=== PATIENT | female | born 1995 | race Caucasian/White ===

== ENCOUNTER 2017-05-13 22:18 | Inpatient (IN) | payer OTHER ==
[2017-05-13 22:40] VITALS: BP 123/80; PULSE 93
[2017-05-13 22:54] VITALS: BP 123/80; PULSE 93; TEMP 98.5
[2017-05-13] MEDS ORDERED: ZANTAC 150MG T150 MG (23:07)
[2017-05-13] MEDS ORDERED: OSCAL 500 TAB500 MG PO (23:40)
[2017-05-13] MEDS ORDERED: PROZAC40 MG PO (23:40)
[2017-05-13] MEDS ORDERED: PRENATAL FORMU1 EAC3 (23:42)
[2017-05-14] VITALS (43 sets, daily range): BP systolic 106–152; BP diastolic 55–113; PULSE 65–125; TEMP 97.4–101.3
[2017-05-14 02:08] LABS: BASO # 0.1 (0.0-0.2); BASO % 0.3 % (0.0-2.0); EOS # 0.1 (0.0-0.7); EOS % 0.4 % (0-4.0); GRAN # 11.4 (1.4-6.5); GRAN % 75.2 % (42.2-75.2); HEMATOCRIT 35.9 % (37.0-47.0); HEMOGLOBIN 11.9 g/dl (12.5-16.0); LYMPH # 2.5 (1.2-3.4); LYMPH % 16.6 % (20.0-51.0); MEAN CELL VOLUME 87 fl (80.0-100.0); MEAN CORPUSCULAR HEMOGLOBIN 29 pg (27.0-31.0); MEAN CORPUSCULAR HGB CONC 33 g/dl (33.0-37.0); MEAN PLATELET VOLUME 9.9 fl (7.4-10.4); MONO % 6.8 % (1.7-9.3); PLATELET COUNT 264 K/mm3 (130-400); RED BLOOD COUNT 4.15 M/mm3 (4.10-5.30); REDCELL DISTRIBUTION WIDTH-CV 12.5 % (11.5-14.5)
[2017-05-15 03:20] VITALS: BP 129/82; PULSE 66
[2017-05-15 07:19] LABS: BASO % 0.3 % (0.0-2.0); EOS # 0.1 (0.0-0.7); EOS % 0.9 % (0-4.0); GRAN # 10.5 (1.4-6.5); GRAN % 71.3 % (42.2-75.2); LYMPH # 2.6 (1.2-3.4); LYMPH % 17.5 % (20.0-51.0); MEAN CELL VOLUME 89 fl (80.0-100.0); MEAN CORPUSCULAR HGB CONC 33 g/dl (33.0-37.0); MEAN PLATELET VOLUME 10.3 fl (7.4-10.4); MONO # 1.4 (0.1-0.6); MONO % 9.3 % (1.7-9.3); PLATELET COUNT 235 K/mm3 (130-400); RED BLOOD COUNT 3.44 M/mm3 (4.10-5.30); REDCELL DISTRIBUTION WIDTH-CV 12.9 % (11.5-14.5)
[2017-05-15 07:26] LABS: HEMATOCRIT 30.5 % (37.0-47.0); MEAN CORPUSCULAR HEMOGLOBIN 29 pg (27.0-31.0)
[2017-05-15 07:43] VITALS: BP 119/67; PULSE 59; TEMP 97.8
[2017-05-15 16:31] VITALS: BP 105/62; PULSE 70; TEMP 97.6
[2017-05-15 20:55] VITALS: BP 111/68; PULSE 81; TEMP 97.4
[2017-05-16 07:15] VITALS: BP 121/69; PULSE 63; TEMP 98.1
[2017-05-16] MEDS ORDERED: IBU600 MG PO (09:04)
[2017-05-16] MEDS ORDERED: PERCOCET 325 MG1 TA2 PO (09:05)
== END 2017-05-16 11:45 | disposition home or self-care (01) | DRG 775 ==
LOC: LDRO 22:18 → OB 05-14 01:24 → LDR 05-14 01:24 → OB 05-14 14:52
PROVIDERS: Obstetrics & Gynecology
PROC: 10E0XZZ Delivery of Products of Conception, External Approach (ICD-10-PCS; principal; 2017-05-14)
PROC: 0HQ9XZZ Repair Perineum Skin, External Approach (ICD-10-PCS; 2017-05-14)
DX: O77.0 Labor and delivery complicated by meconium in amniotic fluid (principal); O69.81X0 Labor and delivery complicated by cord around neck, without compression, not applicable or unspecified; O70.0 First degree perineal laceration during delivery; Z3A.37 37 weeks gestation of pregnancy; Z37.0 Single live birth
CPT/HCPCS: J1200; J2590; J7120

== ENCOUNTER 2017-06-13 10:07 | Observation (INO) | payer OTHER, MEDICAID ==
[~2017-06-13 10:07] MED LIST: IBU600 MG PO; OSCAL 500 TAB500 MG PO; PERCOCET 325 MG1 TA2 PO; PRENATAL FORMU1 EAC3; PROZAC40 MG PO; ZANTAC 150MG T150 MG
[2017-06-13 11:45] VITALS: BP 120/64; PULSE 91; TEMP 96.9
[2017-06-13] MEDS ORDERED: TYLENOL 500MG500 MG PO (11:52)
[2017-06-13 12:20] LABS: BASO # 0.1 (0.0-0.2); EOS # 0.6 (0.0-0.7); EOS % 8.2 % (0-4.0); GRAN # 4.1 (1.4-6.5); GRAN % 55.1 % (42.2-75.2); HEMATOCRIT 40.1 % (37.0-47.0); HEMOGLOBIN 12.9 g/dl (12.5-16.0); LYMPH # 2.2 (1.2-3.4); LYMPH % 29.3 % (20.0-51.0); MEAN CELL VOLUME 87 fl (80.0-100.0); MEAN CORPUSCULAR HEMOGLOBIN 28 pg (27.0-31.0); MEAN CORPUSCULAR HGB CONC 32 g/dl (33.0-37.0); MEAN PLATELET VOLUME 9.2 fl (7.4-10.4); MONO # 0.5 (0.1-0.6); MONO % 6.1 % (1.7-9.3); PLATELET COUNT 285 K/mm3 (130-400); RED BLOOD COUNT 4.59 M/mm3 (4.10-5.30); REDCELL DISTRIBUTION WIDTH-CV 13.2 % (11.5-14.5)
[2017-06-13 12:23] LABS: BILIRUBIN,TOTAL 0.4 mg/dL (0.0-1.0); CALCIUM 9.6 mg/dL (8.4-10.2); CREATININE, serum 0.88 mg/dL (0.52-1.25); INR 1.1 (0.8-3.0); POTASSIUM 4.1 mmol/L (3.4-5.0); PROTHROMBIN TIME 12.3 SECONDS (9.7-12.8); TOTAL PROTEIN 7.5 gm/dL (6.4-8.2)
[2017-06-13 12:32] LABS: D-DIMER < 200.00 ng/mLDDu (200-230)
[2017-06-13 13:58] LABS: COLLECTION METHOD CLEAN CATCH
[2017-06-13 14:07] LABS: PH 8 (5-8); SQUAMOUS EPITHELIAL 0-2 /hpf; URINE APPEARANCE Clear; URINE BACTERIA Rare /hpf; URINE BILIRUBIN Negative (NEGATIVE); URINE BLOOD 1+ (NEGATIVE); URINE COLOR Straw; URINE GLUCOSE Negative (NEGATIVE); URINE KETONE Negative (NEGATIVE); URINE LEUKOCYTE ESTERASE Trace (NEGATIVE); URINE NITRATE Negative (NEGATIVE); URINE PROTEIN(semi-quant) Negative (NEGATIVE); URINE RBC 0-2 /hpf; URINE UROBILINOGEN Negative (NEGATIVE)
[2017-06-13 15:10] VITALS: BP 103/67; PULSE 93; TEMP 98
[2017-06-13 19:30] VITALS: BP 99/61; PULSE 90; TEMP 98.8
[2017-06-13 23:15] VITALS: BP 92/56; PULSE 71; TEMP 98.3
[2017-06-14 03:55] VITALS: BP 102/57; PULSE 67; TEMP 97.6
[2017-06-14 07:11] LABS: BASO # 0.1 (0.0-0.2); BASO % 1.1 % (0.0-2.0); EOS # 0.6 (0.0-0.7); EOS % 8.4 % (0-4.0); GRAN # 3.1 (1.4-6.5); GRAN % 43.5 % (42.2-75.2); HEMATOCRIT 38.7 % (37.0-47.0); HEMOGLOBIN 12.1 g/dl (12.5-16.0); LYMPH # 2.8 (1.2-3.4); LYMPH % 39.8 % (20.0-51.0); MEAN CELL VOLUME 89 fl (80.0-100.0); MEAN CORPUSCULAR HEMOGLOBIN 28 pg (27.0-31.0); MEAN CORPUSCULAR HGB CONC 31 g/dl (33.0-37.0); MEAN PLATELET VOLUME 9.2 fl (7.4-10.4); MONO # 0.5 (0.1-0.6); MONO % 6.9 % (1.7-9.3); PLATELET COUNT 270 K/mm3 (130-400); RED BLOOD COUNT 4.37 M/mm3 (4.10-5.30); REDCELL DISTRIBUTION WIDTH-CV 13.1 % (11.5-14.5)
[2017-06-14 08:00] VITALS: BP 106/55; PULSE 61; TEMP 97.3
[2017-06-14] MEDS ORDERED: LOVENOX 4040 MG/0.4 SQ (09:30)
== END 2017-06-14 10:32 | disposition home or self-care (01) ==
LOC: OB 10:07
PROVIDERS: Obstetrics & Gynecology
DX: R50.9 Fever, unspecified (principal); Z23 Encounter for immunization; D69.6 Thrombocytopenia, unspecified; F32.9 Major depressive disorder, single episode, unspecified; F43.10 Post-traumatic stress disorder, unspecified; K58.9 Irritable bowel syndrome, unspecified; Z88.0 Allergy status to penicillin; K21.9 Gastro-esophageal reflux disease without esophagitis; Z82.49 Family history of ischemic heart disease and other diseases of the circulatory system; Z81.8 Family history of other mental and behavioral disorders
CPT/HCPCS: G0378; J1580; J1650; J7060

== ENCOUNTER → 2017-08-01 | Outpatient (CLI) | payer OTHER, MEDICAID ==
[~2017-08-01] MED LIST changes: +LOVENOX 4040 MG/0.4 SQ; +TYLENOL 500MG500 MG PO
[2017-08-01 20:28] LABS: HEMATOCRIT 41.3 % (37.0-47.0); HEMOGLOBIN 13.5 g/dl (12.5-16.0); MEAN CELL VOLUME 85 fl (80.0-100.0); MEAN CORPUSCULAR HEMOGLOBIN 28 pg (27.0-31.0); MEAN CORPUSCULAR HGB CONC 33 g/dl (33.0-37.0); MEAN PLATELET VOLUME 9.5 fl (7.4-10.4); PLATELET COUNT 316 K/mm3 (130-400); RED BLOOD COUNT 4.84 M/mm3 (4.10-5.30); REDCELL DISTRIBUTION WIDTH-CV 13.2 % (11.5-14.5)
[2017-08-01 20:52] LABS: ANISOCYTOSIS 1+; EOSINOPHIL 3 % (0-4); LYMPHOCYTE 25 % (20.0-51.0); NEUTROPHILS 67 % (42.0-75.2); PLATELET ESTIMATE NORMAL (NORMAL)
== END ==
LOC: COL.LAB 20:21
DX: R50.82 Postprocedural fever (principal); Z88.1 Allergy status to other antibiotic agents; Z88.0 Allergy status to penicillin

== ENCOUNTER 2018-11-15 14:25 | Outpatient (CLI) | payer BC, MEDICAID ==
[~2018-11-15] VITALS: Ht 165.1 cm; Wt 75.9 kg
--- NOTE | 2018-11-15 14:30 | NUR ---
Patient ambulatory to LR 4, changed into gown, and FHR/TOCO monitors placed and explained. Patient states she had a gush of fluid and was also mucous and has continued to feel trickles. Denies contractions/vaginal bleeding. Plan of care discussed. RUBÉN Tenorio RN-closed/thick/high and amniotest negative. called and notified, orders for amniosure and UA. 1505: Amniosure done at this time and sent to lab. Will continue to monitor.
[2018-11-15] MEDS ORDERED: PRILOSEC10 MG PO (14:43)
[2018-11-15] MEDS ORDERED: ZANTAC 7575 MG PO (14:44)
[2018-11-15 15:00] VITALS: BP 112/62; PULSE 82; TEMP 98.5
[2018-11-15 15:30] VITALS: BP 102/62; PULSE 82
[2018-11-15 15:37] LABS: COLLECTION METHOD CLEAN CATCH
[2018-11-15 15:52] LABS: PH 7 (5-8); SQUAMOUS EPITHELIAL 0-2 /hpf; URINE APPEARANCE Clear; URINE BACTERIA None Seen /hpf; URINE BILIRUBIN Negative (NEGATIVE); URINE BLOOD Negative (NEGATIVE); URINE COLOR Straw; URINE GLUCOSE Negative (NEGATIVE); URINE KETONE Negative (NEGATIVE); URINE LEUKOCYTE ESTERASE Negative (NEGATIVE); URINE NITRATE Negative (NEGATIVE); URINE PROTEIN(semi-quant) Negative (NEGATIVE); URINE RBC None Seen /hpf; URINE UROBILINOGEN Negative (NEGATIVE); URINE WBC None Seen /hpf
[2018-11-15 16:20] VITALS: BP 114/59; PULSE 83
== END 2018-11-15 16:20 | disposition home or self-care (01) ==
LOC: LDRO 14:25 → LDR 14:52 → LDRO 16:20
PROVIDERS: Obstetrics & Gynecology
DX: Z34.82 Encounter for supervision of other normal pregnancy, second trimester (principal); Z3A.28 28 weeks gestation of pregnancy
CPT/HCPCS: OP

== ENCOUNTER 2019-02-05 03:25 | Outpatient (CLI) | payer BC, MEDICAID ==
[~2019-02-05] VITALS: Ht 167.6 cm; Wt 82.7 kg
[~2019-02-05 03:25] MED LIST changes: +PRILOSEC10 MG PO; +ZANTAC 7575 MG PO
--- NOTE | 2019-02-05 03:35 | NUR ---
PT TO UNIT WITH COMPLAINTS CONTRACTIONS THAT STARTED AT APPROXIMATLEY 2300 LAST EVENING. ORIENTED TO ROOM, CHANGED INTO GOWN. EFMX2 APPLIED, VS OBTAINED, SVE PERFORMED.
[2019-02-05 04:00] VITALS: BP 119/74; PULSE 77; TEMP 98.2
[2019-02-05 04:14] VITALS: BP 119/74; PULSE 77; TEMP 98.2
[2019-02-05] MEDS ORDERED: TYLENOL 500MG500 MG PO (04:20)
[2019-02-05 07:00] VITALS: BP 122/76; PULSE 88
--- NOTE | 2019-02-05 07:39 | NUR ---
0700 SVE UNCHANGED. CONTRACTIONS IRREGULAR EVERY 2-7 MIN. PATIENT BREATHS THROUGH CONTRACTIONS. FHT 120 GOOD ACCELERATIONS NOTED AND BABY VERY ACTIVE. FAMILY AT BEDSIDE. 0710 DR KIRKPATRICK CALLED AND UPDATED ON ALL ABOVE INFORMATION, ORDERS GIVEN TO DISMISS PATIENT TO HOME. 0720 ALL DISCHARGE INSTRUCTIONS GIVEN TO PATIENT AND FAMILY, ENCOURAGED A HOT BATH OR SHOWER AT HOME TO HELP WITH RELAXATION. TYLENOL FOR DISCOMFORT, AND TO RETURN IF GUSH OF FLUID, THINK YOUR LEAKING FLUID, OR CONTRACTIONS GET MORE INTENSE. CALL WITH ANY QUESTIONS OR CONCERNS.
[2019-02-05] MEDS ORDERED: TYLENOL PM EXTR1 TA1 PO (13:08)
[2019-02-06] MEDS ORDERED: PERCOCET 325 MG1 TA2 PO (08:57)
[2019-02-06] MEDS ORDERED: IBU800 M1 PO (08:57)
== END 2019-02-05 07:40 | disposition home or self-care (01) ==
LOC: LDRO 03:25
DX: O62.9 Abnormality of forces of labor, unspecified (principal); Z3A.39 39 weeks gestation of pregnancy

== ENCOUNTER 2019-02-05 11:18 | Inpatient (IN) | payer BC, MEDICAID ==
[2019-02-05] VITALS (22 sets, daily range): BP systolic 91–129; BP diastolic 50–85; PULSE 82–105; TEMP 98.6–99.1
[~2019-02-05] VITALS: Ht 165.1 cm; Wt 82.7 kg
--- NOTE | 2019-02-05 11:05 | NUR ---
Patient ambulatory to LR4 with spouse, changed into gown, FHR/TOCO monitors placed and explained. Patient was here earlier this am with contractions and has returned and states they are stronger. Plan of care discussed. SVE per Gabe RN-3-/-2 Dr. Newell called and notified and orders received to admit patient and epidural whenever. 1125: IV started in left wrist per Gabe RN, unable to obtain blood and lab notified, LR infusing. Patient requesting epidural and Randy Townsend CRNA called and notified. 1200: Patient sitting on edge of bed and Randy Townsend CRNA at bedside for epidural placement. FHR difficult to trace due to maternal position. 1205: Single dose given and patient tolerates well. 1210: Patient repositioned and plan of care/precautions gone over. 1250: Dr. Newell at bedside to assess patient and FHR strip. SVE-/-2 and AROM with meconium fluid noted. 1300: Cardoso catheter placed and patient tolerates well. Patient right lateral with left leg resting in stirrup.
[2019-02-05 11:49] LABS: BASO % 0.2 % (0.0-2.0); GRAN # 17.4 (1.4-6.5); GRAN % 88.2 % (42.2-75.2); HEMATOCRIT 38.3 % (37.0-47.0); LYMPH # 1.4 (1.2-3.4); LYMPH % 7.2 % (20.0-51.0); MEAN CELL VOLUME 89 fl (80.0-100.0); MEAN CORPUSCULAR HEMOGLOBIN 30 pg (27.0-31.0); MEAN CORPUSCULAR HGB CONC 34 g/dl (33.0-37.0); MEAN PLATELET VOLUME 9.4 fl (7.4-10.4); MONO # 0.8 (0.1-0.6); MONO % 3.8 % (1.7-9.3); PLATELET COUNT 211 K/mm3 (130-400); REDCELL DISTRIBUTION WIDTH-CV 13.4 % (11.5-14.5)
[2019-02-05] MEDS ORDERED: TYLENOL PM EXTR1 TA1 PO (13:08)
--- NOTE | 2019-02-05 14:25 | NUR ---
FHR difficult to trace and patient turned to back for SVE and monitor adjusted. 1425:SVE-10/100/+1 and FHR decreasing to 80-90bpm for approx. 1 minute and returns to baseline. Patient sitting up with legs lowered.
--- NOTE | 2019-02-05 14:25 | NUR ---
1425:SVE-/+[address] Newell called and notifed, orders to labor down for 30 minutes. Patient sat up and legs lowered. 1459: Patient begins to push with contractions with this RN per Dr. Eric orders. 1508: Cardoso catheter removed and patient tolerates well. Progress noted with few pushes and Dr. Newell called for delivery. 1515: Dr. Newell at bedside and bed taken apart and patient set up for vaginal delivery. Patient begins to push with contractions with Dr. Newell. 1521: Spontaneous vaginal delivery of head followed by body. bulb syringed and to patients Vitaly white RN assumes care of infant. Cord clamped by physician and cut by FOB. Cord blood obtained. 1525: Spontaneous delivery of placenta and pitocin bolus started per protocol. Fundal massage done/firm/bleeding WNL. Perineum intact, pericare done, patient repositioned, and ice pack to perineum. Plan of care discussed and will continue to monitor.
--- NOTE | 2019-02-05 18:10 | NUR ---
Patient dangles feet and epidural catheter removed. Patient to bathroom via wheelchair and assisted to toilet, voids, pericare done, new gown/underwear/pad on. Patient to wheelchair and to room and assisted to bed.
[2019-02-06 02:00] VITALS: BP 112/70; PULSE 65; TEMP 98.1
[2019-02-06 08:25] VITALS: BP 115/67; PULSE 60; TEMP 97.3
[2019-02-06] MEDS ORDERED: IBU800 M1 PO (08:57)
[2019-02-06] MEDS ORDERED: PERCOCET 325 MG1 TA2 PO (08:57)
--- NOTE | 2019-02-06 09:49 | NUR ---
Initial visit; Parents thanked Order Worker for offering congratulations and God's blessings for the of their son. Order Worker thanked them for choosing [facility]
[2019-02-06 11:40] VITALS: BP 108/63; PULSE 90; TEMP 97.9
== END 2019-02-06 20:00 | disposition home or self-care (01) | DRG 807 ==
LOC: LDR 11:18 → OB 11:18
PROVIDERS: Student in an Organized Health Care Education/Training Program; ADMIT Obstetrics & Gynecology
PROC: 10E0XZZ Delivery of Products of Conception, External Approach (ICD-10-PCS; principal; 2019-02-05)
PROC: 10907ZC Drainage of Amniotic Fluid, Therapeutic from Products of Conception, Via Natural or Artificial Opening (ICD-10-PCS; 2019-02-05)
DX: O99.62 Diseases of the digestive system complicating childbirth (principal); Z37.0 Single live birth; O99.344 Other mental disorders complicating childbirth; Z3A.39 39 weeks gestation of pregnancy; K21.9 Gastro-esophageal reflux disease without esophagitis; K58.9 Irritable bowel syndrome, unspecified; F32.9 Major depressive disorder, single episode, unspecified; F43.10 Post-traumatic stress disorder, unspecified; O77.0 Labor and delivery complicated by meconium in amniotic fluid; Z91.410 Personal history of adult physical and sexual abuse
CPT/HCPCS: J2590; J2795; J7120

== ENCOUNTER 2021-06-04 11:59 | Outpatient (CLI) | payer BC, MEDICAID ==
[~2021-06-04] VITALS: Ht 167.6 cm; Wt 86.1 kg
[~2021-06-04 11:59] MED LIST changes: +IBU800 M1 PO; +TYLENOL PM EXTR1 TA1 PO
--- NOTE | 2021-06-04 12:15 | NUR ---
PT AMBULATORY TO UNIT C/O POTENTIAL SROM THIS AM AT 0930, STATES SHE FELT A GUSH AFTER GETTING UP OUT OF BED, AND HAS FELT MULTIPLE "LEAKING FEELINGS" SINCE. STATES SHE HAS BEEN KARMEN EVERY 20-25 MINUTES. REPORTS POSITIVE MOVEMENT. SEE PHYS NOTIFICATION.
[2021-06-04 12:45] VITALS: BP 111/70; PULSE 81; TEMP 98
[2021-06-04] MEDS ORDERED: ZOLOFT 50MG50 MG PO (12:51)
[2021-06-04] MEDS ORDERED: PRILOSEC 20MG20 MG PO (12:51)
[2021-06-04 13:30] VITALS: BP 126/85; PULSE 89
--- NOTE | 2021-06-04 13:39 | NUR ---
ALL DC PAPERWORK REVIEWED AND UNDERSTOOD WELL WHEN TO RETURN TO L&D. PT DENIES FURTHER QUESTIONS OR CONCERNS AND STATES SHE WOULD LIKE TO "LABOR AT HOME" FOR MUCH OF THESE "EARLY PARTS OF LABOR" POSSIBLE." AMBULATORY FROM UNIT WITH .
[2021-06-05] MEDS ORDERED: MOTRIN 800800 MG/TAB PO (06:42)
== END 2021-06-04 13:40 | disposition home or self-care (01) ==
LOC: LDRO 11:59 → LDR 12:54 → LDRO 13:40
DX: Z34.93 Encounter for supervision of normal pregnancy, unspecified, third trimester (principal); Z3A.39 39 weeks gestation of pregnancy

== ENCOUNTER 2021-06-04 17:51 | Inpatient (IN) | payer OTHER ==
[~2021-06-04] VITALS: Ht 167.6 cm; Wt 86.1 kg
[2021-06-04] VITALS (12 sets, daily range): BP systolic 103–151; BP diastolic 63–90; PULSE 75–120; TEMP 97.9–98.6
[~2021-06-04 17:51] MED LIST changes: +PRILOSEC 20MG20 MG PO; +ZOLOFT 50MG50 MG PO
--- NOTE | 2021-06-04 17:55 | NUR ---
PT ARRIVES VIA WHEELCHAIR MOANING AND C/O INTENSE CONTRACTIONS Q1.5MIN APART. FIRM WITH PALPATION. SVE UPON ARRIVAL /-2. EFM TRACING CATEGORY 1 STRIP. WILL ADMIT PATIENT TO LABOR AND DELIVERY PER CHANO MERCADO, SEE PHYS NOTIFICATION
[2021-06-04 18:38] LABS: BASO % 0.3 % (0.0-2.0); EOS % 0.1 % (0.0-4.0); GRAN # 7.2 K/mm3 (1.4-6.5); GRAN % 71.5 % (42.2-75.2); HEMOGLOBIN 11.4 g/dl (12.5-16.0); LYMPH # 2.1 K/mm3 (1.2-3.4); LYMPH % 20.7 % (20.0-51.0); MEAN CELL VOLUME 83 fl (80.0-100.0); MEAN CORPUSCULAR HEMOGLOBIN 27 pg (27-31); MEAN CORPUSCULAR HGB CONC 33 g/dl (33.0-37.0); MEAN PLATELET VOLUME 10.9 fl (7.4-10.4); MONO # 0.7 K/mm3 (0.1-0.6); MONO % 6.9 % (1.7-9.3); PLATELET COUNT 266 K/mm3 (130-400); REDCELL DISTRIBUTION WIDTH-CV 13.2 % (11.5-14.5)
--- NOTE | 2021-06-04 18:45 | NUR ---
1820- 18G IV STARTED IN PT'S LEFT AC MY LAKEISHA RN 182- GRADER GREEN MEAT PRESENT AT BEDSIDE AND PT IS SAT UP IN POSITION FOR EPIDURAL. GRADER GREEN MEAT DISCUSSING EPIDURAL PROCEDURE 1823- SINGLE SHOT DOSE OF EPIDURAL ADMINISTERED AT THIS TIME. 1836- PT POSITIONED ON LEFT LATERAL SIDE, DR. ORTA PRESENT AT BEDSIDE TO DISCUSS PLAN OF CARE AND PT VERBALIZES A DESIRE TO WATE FOR EPIDURAL TO SET UP MORE BEFORE CERVICAL EXAM AND POSSIBLE AROM. 1843- PT POSITIONED ON RIGHT LATERAL SIDE AFTER REPORTING FEELING MORE PAIN ON RIGHT SIDE
[2021-06-04 18:48] LABS: HEMATOCRIT 34.8 % (37.0-47.0)
--- NOTE | 2021-06-04 18:55 | NUR ---
PT POSITIONED IN THRONE. PT DENIES FURTHER NEEDS AT THIS TIME AND STATES SHE CANNOT FEEL CONTRACTIONS. VISIBLE BREAKS IN FHTS ARE OBSERVED WITH MATERNAL CONINCIDENCE WITH MATERAL POSITION CHANGES, RN AT BEDSIDE TO AJDUST MONITORS.
--- NOTE | 2021-06-04 18:55 | NUR ---
DR. ORTA PRESENT AT BEDSIDE TO DISCUSS PLAN OF CARE. PROVIDER RUPTURED PT AT THIS TIME WITH CLEAR MODERATE FLUIDS. PT DENIES FEELING PRESSURE OR URGE TO PUSH. RN ASSISTED PT INTO THRONE POSITION. EFM AND TOCO ADJUSTED. PT DENIES FURTHER NEEDS
--- NOTE | 2021-06-04 19:15 | NUR ---
PT FLIPPED TO LEFT LATERAL SIDE WITH PEANUT BALL BETWEEN LEGS.
--- NOTE | 2021-06-04 19:30 | NUR ---
1923-DR. ORTA PRESENT AT BEDSIDE TO ASSESS PATIENT AND GAVE VERBAL ORDER TO START IV PITOCIN AT 2MUNITS/MIN 1926- A DECREASE IN FHTS FROM BASELINE IS OBSERVED, RN AT BEDSIDE AND ASSISTS MOTHER INTO TURNING TO RIGHT LATERAL SIDE. VISIBLE BREAKS IN FHTS ARE OBSERVED RN AT BEDSIDE AND ADJUSTS MONITOR. 192- RN TURNS PT TO LEFT LATERAL SIDE AND ADJUSTS MONITOR. PT REPORTS FEELING PAIN IN HER RIGHT SIDE OF ABDOMEN AND REQUESTS PROVIDER TO CHECK HER CERVIX. 193- DR. ORTA AT BEDSIDE AND PT'S CERVIX IS COMPLETE +2 STATION AND PT IS PREPPRED FOR VAGINAL DELIVERY
--- NOTE | 2021-06-04 19:45 | NUR ---
PROVIDER PRESENT AT BEDSIDE AND PT IS COUCHED ON HOW TO PUSH. PROVIDER IS REVIEWING STRIP. 193- PROVIDER STRAIGHT CATHED PATIENT. 1941- ONE VIABLE FEMALE IS BORN AND PLACED SKIN TO SKIN WITH MOTHER.
--- NOTE | 2021-06-04 21:15 | NUR ---
PT RESTING IN BED HOLDING , NO SIGNS OF DISTRESS. PT REPORTS FEELING IN HER LEGS AND IS ABLE TO STRAIGHT LIFT THEM OFF THE BED INDEPENTLY. PT DENIES FURTHER NEEDS AT THIS TIME.
--- NOTE | 2021-06-04 22:00 | NUR ---
PT AMBULATED TO BATHROOM WITH STEADY GAIT, DENIES LIGHTHEADEDNESS OR DIZZINESS. PERICARE PROVIDED AND PADS CHANGED.
--- NOTE | 2021-06-04 22:10 | NUR ---
PT WHEELED DOWN TO ROOM 214 BY THIS RN. RN DEMONSTRATED CALL LIGHT SYSTEM AND MOTHER VERBALIZED AN UNDERSTANDING. MOTHER DENIES FURTHER NEEDS AT THIS TIME.
[2021-06-05 04:00] VITALS: BP 116/63; PULSE 73; TEMP 98.8
[2021-06-05] MEDS ORDERED: MOTRIN 800800 MG/TAB PO (06:42)
[2021-06-05 08:20] VITALS: BP 108/53; PULSE 63; TEMP 98.1
[2021-06-05 17:00] VITALS: BP 111/66; PULSE 64; TEMP 97.7
== END 2021-06-05 21:00 | disposition home or self-care (01) | DRG 807 ==
LOC: LDRO 17:51 → LDR 18:02 → LDRO 18:17 → LDR 18:18 → OB 22:10
PROVIDERS: ADMIT Obstetrics & Gynecology
PROC: 10E0XZZ Delivery of Products of Conception, External Approach (ICD-10-PCS; principal; 2021-06-04)
PROC: 10907ZC Drainage of Amniotic Fluid, Therapeutic from Products of Conception, Via Natural or Artificial Opening (ICD-10-PCS; 2021-06-04)
DX: O99.344 Other mental disorders complicating childbirth (principal); Z37.0 Single live birth; F43.10 Post-traumatic stress disorder, unspecified; F32.A Depression, unspecified; O99.62 Diseases of the digestive system complicating childbirth; K21.9 Gastro-esophageal reflux disease without esophagitis; K58.1 Irritable bowel syndrome with constipation; Z3A.39 39 weeks gestation of pregnancy; Z91.410 Personal history of adult physical and sexual abuse
CPT/HCPCS: J2400; J2590; J7120

== ENCOUNTER → 2021-12-23 | Outpatient (CLI) | payer OTHER ==
[~2021-12-23] MED LIST changes: +MOTRIN 800800 MG/TAB PO
== END ==
LOC: COL.RAD 08:34
DX: G43.909 Migraine, unspecified, not intractable, without status migrainosus (principal); H53.129 Transient visual loss, unspecified eye
CPT/HCPCS: A9575